=== PATIENT | female | born 1945 | race Caucasian/White ===

== ENCOUNTER 2017-06-10 17:11 | Emergency (ER) | payer OTHER ==
[~2017-06-10] VITALS: Ht 157.5 cm; Wt 78.0 kg
[~2017-06-10 17:11] MED LIST: BUPR-166 PO
[2017-06-10 17:19] VITALS: Ht 157.5 cm; Wt 78.0 kg
--- NOTE | 2017-06-10 20:18 | RADRPT ---
PROCEDURE: CT Brain without contrast. CLINICAL INDICATION: Headaches status post fall TECHNIQUE: A CT of the brain was performed on a [employer] 64-slice CT scanner utilizing axial imaging from the skull base through the vertex without IV contrast. Multiplanar reformatted images were made. Images were reviewed on a PACS workstation. The CTDIvol is 44.58 mGy and the DLP is 720 .23 mGycm. One of the following 3 does reduction techniques were used during this CT examination: 1) Automated exposure control 2) Adjustment of the mA +/- kV according to patient size or 3) Use of iterative reconstruction technique COMPARISON: None FINDINGS: There is no intracranial hemorrhage, mass effect, or midline shift. No extra-axial fluid collection is seen. The ventricles and sulci are age appropriate. Mild diffuse volume loss is present. Subtle decreased attenuation is present in the bilateral centrum semiovale and periventricular white matter compatible with mild chronic microvascular ischemic changes. Physiologic calcifications are present in the bilateral basal ganglia. The visualized scalp and calvarium are remarkable for a small left frontal scalp 9 mm subcutaneous n odule. The underlying calvarium is normal without fractures present. IMPRESSION: 1. No evidence of acute intracranial hemorrhage, infarcts, or acute intracranial pathology. 2. Mild chronic microvascular ischemic disease and diffuse volume loss. 3. Left frontal scalp 9 mm subcutaneous nodule. 4. Mild atherosclerotic vascular disease. RPTAT: HDC .Maria Luz Browning MD, MD Date Time Electronically viewed and signed by .Maria Luz Browning MD, MD on 06/10/2017 20:18 .C/
--- NOTE | 2017-06-10 20:36 | RADRPT ---
PROCEDURE: CT Cervical Spine. CLINICAL INDICATION: Pain status post fall TECHNIQUE: A CT of the cervical spine was performed on a multidetector GE CT scanner utilizing hig h-resolution axial imaging from the skull base through the cervical thoracic junction. Sagittal, co kendrick, and multiplanar reformatted images were made. CTDI 22.31 mGy and DLP 567.29 mGy-cm. One of the following 3 does reduction techniques were used during this CT examination: 1) Automated exposure control 2) Adjustment of the mA +/- kV according to patient size or 3) Use of iterative reconstruction technique COMPARISON: CT brain otherwise no comparison cervical spine CT is available FINDINGS: There is straightening of the normal lordosis of the cervical spine. No acute fractures or traumatic subluxations are present. Preservation of vertebral body heights are noted. Degenerative spondylosi s/enthesopathy is present from the C1-T1 levels. Moderate to severe disc space height loss is noted at the C5-6 and C6-7 levels with mild disc space height loss at C7-T1. The posterior elements are in tact and well aligned. 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 The specific axial levels are as follows : Occiput to C2: The visualized posterior fossa, bilateral mastoid air cells and middle ear cavities are clear. The central canal is patent without pathology. Degenerative changes are present at the at lantoaxial articulation. C2-3: The intervertebral discs is normal. The central canal, subarticular recess and neural foramen are patent. C3-4: A mild 2 mm broad-based bulge is present. AP canal dimension is 9 mm. This results in a mild central canal stenosis without subarticular recess or neural foraminal stenosis. C4-5: A mild osteophytic bar and bulge is present which measures 3 mm. Bilateral uncovertebral oste ophytes and mild facet arthropathy is present. AP canal dimension is 9.9 mm. This results in a mild central canal stenosis without subarticular recess stenosis. Severe left neural foraminal stenosis i s present and the right neural foramen is patent. Recommend correlation with a left C5 radiculopathy . C5-6: Moderate to severe disc space height loss is present with a 3 mm mild osteophytic bar and bul ge. Right greater than left uncovertebral osteophytes are present. AP canal dimension is 9 mm. Right greater than left uncovertebral osteophyte and facet arthropathy is present. This results in a mild central canal stenosis, bilateral subarticular recess stenosis and severe right neural foraminal st enosis. The left neural foramen is patent. Recommend correlation with a right C6 radiculopathy. C6-7: Moderate to severe disc space height loss is present. A mild osteophytic bar and bulge is pre sent which measures 3 mm. AP canal dimension is 9.8 mm. This results in a mild central canal stenosi s without subarticular recess stenosis. Mild bilateral neural foraminal stenosis is present. Recomme nd correlation with a bilateral C7 radiculopathy. C7-T1: The intervertebral discs is normal. The central canal, subarticular recess and neural forame n are patent. IMPRESSION: 1. No acute fractures or traumatic subluxations. 2. Straightening of the normal cervical lordosis. 3. Multilevel degenerative spondylosis/enthesopathy at the C1- T1 levels. 4. Multilevel broad-based disc osteophyte complexes at the C3-4 through C6-7 levels with mild centr al canal stenosis at the C3-4 through C6-7 levels. 5. Multilevel neural foraminal stenosis at the C4-5 through C6-7 levels with radiculopathy as noted . 6. Moderate to severe disc space height loss and degenerative changes at the C5-6 and C6-7 levels. RPTAT: HDC .Maria Luz Browning MD, MD Date Time Electronically viewed and signed by .Maria Luz Browning MD, MD on 06/10/2017 20:35 .C/
--- NOTE | 2017-06-10 20:46 | ERD ---
ER Documentation Chief Complaint Date/Time DATE: 06/10/17 TIME: 20:43 Chief Complaint morales, s/p mech fall, no ko wants ct HPI 72-year-old female slipped and hit her forehead and fell down while carrying some water 3 days ago. She applied ice to the hematoma on her forehead and it improved. She has had a residual headache and mild dizziness. She denies any neck pain, weakness, vomiting, visual changes. ROS All systems reviewed and are negative except as per history of present illness. Medications Home Meds Reported Medications Bupropion Hcl* (Wellbutrin*) 75 Mg Tab, 75 MG PO BID, TAB 04/22/14 Allergies Allergies: Coded Allergies: codeine (Verified Allergy, Unknown, 04/22/14) PMhx/Soc History of Surgery: Yes (laparascopy 1981) Anesthesia Reaction: No Hx Neurological Disorder: No Hx Respiratory Disorders: No Hx Cardiac Disorders: No Hx Psychiatric Problems: Yes (depression) Hx Miscellaneous Medical Probl: No Hx Alcohol Use: No Hx Substance Use: No Hx Tobacco Use: No Smoking Status: Never smoker Physical Exam Vitals Vital Signs Date Time Temp Pulse Resp B/P Pulse Ox O2 Delivery O2 Flow Rate FiO2 06/10/17 17:19 98.8 70 18 172/78 99 Physical Exam Const: []Alert, [id number]. Head: Minimal swelling of the forehead with residual hematoma without step- offs or deformities Eyes: Normal Conjunctiva. Eyes are PERRLA and extraocular movements intact. ENT: Normal External Ears, Nose and Mouth. Neck: Full range of motion..~ No meningismus.Neck nontender. Resp: Clear to auscultation bilaterally Cardio: Regular rate and rhythm, no murmurs Abd: Soft, non tender, non distended. Normal bowel sounds Skin: No petechiae or rashes Back: No midline or flank tenderness Ext: No cyanosis, or edema Neur: Awake and alert. No cerebellar signs. Very slight unsteady gait but no significant abnormalities. Psych: Normal Mood and Affect Procedures/MDM CT brain shows no acute findings of CT cervical spine shows no fracture dislocation, or degenerative changes. Patient was stable amatory throughout ED course. Patient presents with a forehead hematoma and headache likely a concussion after head injury 2 days ago. She has no signs or symptoms of bleeding, fracture, neurologic deficit . She will discharged home with instructions for Tylenol and further observation fluids and rest. Patient is advised to recheck for new or worsening symptoms with primary care doctor this week. Departure Diagnosis: Primary Impression: Head injury Encounter type: initial encounter Qualified Code: S09.90XA - Injury of head , initial encounter Condition: Stable Patient Instructions: Concussion, No Wake Up Additional Instructions: No acute findings due to fall noted on CT scans. Take Tylenol for pain. Recheck for new or worsening symptoms or primary care doctor. DEVANG JOSE MD Jun 10, 2017 20:46
== END 2017-06-10 21:08 | disposition home or self-care (01) ==
LOC: FTE 17:11
DX: S00.83XA Contusion of other part of head, initial encounter (principal); S09.90XA Unspecified injury of head, initial encounter; W01.198A Fall on same level from slipping, tripping and stumbling with subsequent striking against other object, initial encounter; Y92.9 Unspecified place or not applicable
CPT/HCPCS: 70450; 72125